=== PATIENT | male | born 1965 | race Caucasian/White ===

== ENCOUNTER 2017-06-27 17:30 | Emergency (ER) | payer OTHER ==
[2017-06-27] MEDS ORDERED: EPINEPHrine AMP 1 MG/ML SUBCUT ONE (17:31)
[2017-06-27] MEDS ORDERED: methylPREDNISolone 125 MG* 2 ML VIAL IV ONE (17:32)
[2017-06-27] MEDS ORDERED: diPHENhydraMINE IV* 50 MG/ML 1 ml VIAL (BENADRYL) IM ONE (17:33)
[2017-06-27] MEDS ORDERED: diPHENhydraMINE IV* 50 MG/ML 1 ml VIAL (BENADRYL) IV ONE (17:42)
--- NOTE | 2017-06-27 18:06 | UC ---
Allergic Reaction HPI - HPI Summary HPI Summary: 51 year old male presents with complains of a allergic reaction to a bee sting. EMS was called immediately. - History of Current Complaint Stated Complaint: BEE STING ALLERGIC Time Seen by Provider: 06/27/17 17:31 Hx Obtained From: Patient Onset/Duration: Sudden Onset Severity Initially: Severe Severity Currently: Severe Pain Scale Used: 0-10 Numeric - 5 Location: Discrete @ Character: Swelling Aggrevating Factor(s): Cold - Allergies/Home Medications Allergies/Adverse Reactions: Allergies Allergy/AdvReac Type Severity Reaction Status Date / Time No Known Allergies Allergy Verified 10/21/14 16:33 PMH/Surg Hx/FS Hx/Imm Hx Previously Healthy: Yes - Surgical History Surgical History: Yes Surgery Procedure, Year, and Place: wisdom teeth - Social History Alcohol Use: Weekly Substance Use Type: None Smoking Status (MU): Former Smoker When Did the Patient Quit Smoking/Using Tobacco: 5 yrs ago Review of Systems Constitutional: Negative Skin: Rash, Other - ALLERGIC REACTION TO BEE STING Eyes: Negative ENT: Negative Respiratory: Negative Cardiovascular: Negative Gastrointestinal: Negative Genitourinary: Negative Motor: Negative Neurovascular: Negative Musculoskeletal: Negative Neurological: Negative Psychological: Negative All Other Systems Reviewed And Are Negative: Yes Physical Exam Triage Information Reviewed: Yes Vital Signs Reviewed: Yes Eye Exam: Normal ENT Exam: Normal Dental Exam: Normal Neck exam: Normal Neck: Positive: 1 Respiratory Exam: Normal Cardiovascular Exam: Normal Abdominal Exam: Normal Musculoskeletal Exam: Normal Neurological Exam: Normal Psychological Exam: Normal Skin: Positive: rashes Allergic Reaction Course/Dx - Differential Dx/Diagnosis Provider Diagnoses: ALERGIC REACTION TO BEE STING Discharge - Discharge Plan Condition: Guarded Disposition: [facility] Referrals: Dc Manzanares MD [Primary Care Provider] -
[2017-06-27 18:17] VITALS: BP 161/98
== END 2017-06-27 18:19 | disposition short-term general hospital (02) ==
LOC: UCEAST 17:30
DX: T63.441A Toxic effect of venom of bees, accidental (unintentional), initial encounter (principal); R60.9 Edema, unspecified; Y92.9 Unspecified place or not applicable; Z87.891 Personal history of nicotine dependence
CPT/HCPCS: 96372; 96374; 96375; 96376; 99213; G0463; J0171; J1200; J2930

== ENCOUNTER 2017-06-27 18:05 | Emergency (ER) | payer OTHER ==
[2017-06-27] MEDS ORDERED: Famotidine IV* 10 MG/ML 2 ML (20 mg) IV ONE (18:23)
[2017-06-27] MEDS ORDERED: predniSONE TAB* 20 MG PO ONE (18:41)
[2017-06-27] MEDS ORDERED: Famotidine TAB* 20 MG PO ONE (18:42)
--- NOTE | 2017-06-27 18:50 | ED ---
Queenie Martinez Rebecca, scribed for Kush Alvarado MD on 06/27/17 at 1821 . Allergic Reaction/Systemic - HPI Summary HPI Summary: Pt is a 51 y/o M BIBA from [facility] who presents to ED c/o allergic reaction s/p bee sting. At approximately 1730 he was stung on the R wrist. He c/o throat swelling, lip tingling and diffuse, erythematous hives. Sx improved [employer] by Tx at [facility] which consisted of IV Benadryl 50mg, IV Solu-Medrol and epinephrine x1. - History of Current Complaint Chief Complaint: EDAllergicReaction Time Seen by Provider: 06/27/17 18:14 Hx Obtained From: Patient Onset/Duration: Still Present Severity Currently: Mild Pain Intensity: 2 Pain Scale Used: 0-10 Numeric Location: Diffuse Character: Hives Aggravating Factor(s): Nothing Alleviating Factor(s): Antihistamines - Benadryl, Epinephrine - 1x, Other - Solu -Medrol Associated Signs And Symptoms: Positive: Throat Tightening - Allergies/Home Medications Allergies/Adverse Reactions: Allergies Allergy/AdvReac Type Severity Reaction Status Date / Time No Known Allergies Allergy Verified 10/21/14 16:33 PMH/Surg Hx/FS Hx/Imm Hx Respiratory History: Reports: Hx Asthma - mild Musculoskeletal History: Reports: Hx Gout - Surgical History Surgery Procedure, Year, and Place: wisdom teeth Infectious Disease History: No Infectious Disease History: Denies: Hx Clostridium Difficile, Hx Hepatitis, Hx Human Immunodeficiency Virus (HIV), Hx of Known/Suspected MRSA, Hx Shingles, Hx Tuberculosis, Hx Known/ Suspected VRE, Hx Known/Suspected VRSA, History Other Infectious Disease, Traveled Outside the [place] in Last 30 Days - Family History Known Family History: Positive: Cardiac Disease - Social History Alcohol Use: Weekly Substance Use Type: Reports: None Smoking Status (MU): Former Smoker Review of Systems Positive: Other - Throat swelling, lip tingling Positive: Rash - Diffuse, erythematous hives All Other Systems Reviewed And Are Negative: Yes Physical Exam - Summary Physical Exam Summary: General: well-appearing, no pain distress Skin: warm, dry, hives on the face and R arm, swollen lips Head: normal Eyes: EOMI, YOVANI ENT: swollen lips, posterior pharynx benign, airways patent Neck: supple, nontender Respiratory: CTA, breath sounds present Cardiovascular: RRR Abdomen: soft, nontender Bowel: present Musculoskeletal: normal, strength/ROM intact Neurological: normal, sensory/motor intact, A&O x3 Psychological: affect/mood appropriate Triage Information Reviewed: Yes Vital Signs On Initial Exam: Initial Vitals Temp Pulse Resp BP Pulse Ox 98.9 F 76 19 148/80 97 06/27/17 18:10 06/27/17 18:10 06/27/17 18:10 06/27/17 18:10 06/27/17 18:10 Vital Signs Reviewed: Yes - Bedias Coma Scale Coma Scale Total: 15 Diagnostics - Vital Signs Vital Signs Temp Pulse Resp BP Pulse Ox 06/27/17 18:10 98.9 F 76 19 148/80 97 - Laboratory Lab Statement: Any lab studies that have been ordered have been reviewed, and results considered in the medical decision making process. Allergic Reaction Course/Dx - Course Course Of Treatment: STABLE IN ED. DISPOSITION PENDING AT SHIFT CHANGE. CRITICAL CARE TIME LESS THAN 30 MINUTES. - Diagnoses Provider Diagnoses: Allergic reaction to bee sting Discharge - Discharge Plan Condition: Stable Disposition: HOME Prescriptions: Epinephrine [Epipen 2-Nicolas] 0.3 mg IM ONCE PRN #1 inj PRN Reason: Allergy Symptoms Famotidine TAB* [Pepcid 20 MG TAB*] 20 mg PO BID PRN #8 tab PRN Reason: Allergy Symptoms predniSONE TAB* [Deltasone TAB*] 40 mg PO DAILY PRN #8 tab PRN Reason: Allergy Symptoms Patient Education Materials: General Allergic Reaction (ED) Referrals: Dc Manzanares MD [Primary Care Provider] - Additional Instructions: FOLLOW UP WITH YOUR DOCTOR. RETURN TO THE EMERGENCY DEPARTMENT FOR ANY WORSENING OF YOUR CONDITION; DIFFICULTY BREATHING OR SWALLOWING OR QUESTIONS OR CONCERNS. The documentation as recorded by the Queenie olivares Rebecca accurately reflects the service I personally performed and the decisions made by me, Kush Alvarado MD.
[2017-06-27 19:50] VITALS: BP 129/68
== END 2017-06-27 20:25 | disposition home or self-care (01) ==
LOC: ED 18:05
DX: T63.441A Toxic effect of venom of bees, accidental (unintentional), initial encounter (principal); R22.0 Localized swelling, mass and lump, head; Y92.9 Unspecified place or not applicable; J45.909 Unspecified asthma, uncomplicated; Z87.891 Personal history of nicotine dependence
CPT/HCPCS: 96374; 99282; A9270-GY; J7512